=== PATIENT | male | born 1980 | race African-American/Black ===

== ENCOUNTER 2016-12-18 15:43 | Emergency (ER) | payer OTHER ==
[2016-12-18] MEDS ORDERED: ALBUTEROL SO4 2.5/IPRATROPIUM 0.5 INH SOL 3 ML VIAL.NEB. NEB ONE ×3 (15:53→16:51)
[2016-12-18 15:55] VITALS: BP 162/91; PULSE 102; TEMP 98.4; BMI 50.2
[2016-12-18] MEDS ORDERED: KETOROLAC TROMETHAMINE 60 MG/2 ML VIAL IM ONE (15:58)
[2016-12-18] MEDS ORDERED: KETOROLAC TROMETHAMINE 60 MG/2 ML VIAL ONE (16:29)
[2016-12-18] MEDS ORDERED: predniSONE 20 MG TABLET (UD) ONE (16:51)
[2016-12-18] MEDS ORDERED: predniSONE 20 MG TABLET (UD) PO ONE (16:51)
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
== END 2016-12-18 17:59 | disposition home or self-care (01) ==
LOC: JERFT 15:43
PROC: 3E0F7GC Introduction of Other Therapeutic Substance into Respiratory Tract, Via Natural or Artificial Opening (ICD-10-PCS; principal; 2016-12-18)
PROC: 3E0F7GC Introduction of Other Therapeutic Substance into Respiratory Tract, Via Natural or Artificial Opening (ICD-10-PCS; 2016-12-18)
PROC: 3E0233Z Introduction of Anti-inflammatory into Muscle, Percutaneous Approach (ICD-10-PCS; 2016-12-18)
DX: J45.901 Unspecified asthma with (acute) exacerbation (principal)
CPT/HCPCS: 71020-TC; 94640; 96372; 99281-25

== ENCOUNTER 2017-02-21 07:30 | Emergency (ER) | payer OTHER ==
[2017-02-21 07:37] VITALS: BP 147/80; PULSE 88; TEMP 98.2; BMI 48.7
[2017-02-21] MEDS ORDERED: FLUORESCEIN NA 1 EA STRIP ONE (08:27)
[2017-02-21] MEDS ORDERED: TETRACAINE 0.5% OPHTH SOLN 2 ML BOTTLE ONE (08:27)
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
--- NOTE | 2017-02-21 08:42 | PDOC ---
Attending Attestation - Resident Resident Name: James Yeung - ED Attending Attestation I have performed the following: I have examined & evaluated the patient, The case was reviewed & discussed with the resident, I agree w/resident's findings & plan - HPI HPI: 02/21/17 08:38 36 yo AA M with no significant medical history presented to the ED with pink eyes x 1 day. He woke up yesterday morning with sticky, white, crusty discharge and redness in b/l eyes, L being worse than R. Patient stated he gets irritation and pink eyes at times but the white sticky discharge is new and different from prior episodes. He does not wear contact lens or glasses. Denies cold symptom, fever, chills, eye pain, vision change. - Physicial Exam PE: 02/21/17 08:39 Physical exam PERRL, EOMI Bilateral conjunctivitis with some crusting is noted On fluoresceine exam, there is no corneal uptake, corneal abrasion, or corneal ulcers Visual acuity is 20/20 - Medical Decision Making 02/21/17 08:40 Most likely bilateral viral conjunctivitis, with possible secondary bacterial infection Will treat with Cipro ophthalmic drops
== END 2017-02-21 09:06 | disposition home or self-care (01) ==
LOC: JER 07:30
PROC: 4A07X0Z Measurement of Visual Acuity, External Approach (ICD-10-PCS; principal; 2017-02-21)
DX: B30.9 Viral conjunctivitis, unspecified (principal); B97.89 Other viral agents as the cause of diseases classified elsewhere
CPT/HCPCS: 99173; 99282-25

== ENCOUNTER 2017-08-05 07:23 | Emergency (ER) | payer OTHER ==
[2017-08-05 07:53] VITALS: BP 127/81; PULSE 90; TEMP 98.8; BMI 50.2
--- NOTE | 2017-08-05 08:12 | PDOC ---
Attending Attestation - Resident Resident Name: KaliaRadha - ED Attending Attestation I have performed the following: I have examined & evaluated the patient, The case was reviewed & discussed with the resident, I agree w/resident's findings & plan, Exceptions are as noted - HPI HPI: 08/05/17 08:10 36y M presenting wit butler possible bug bite he woke up on wednesday and noticed something on his nose he thought it was a pimple and picked at it. pt denies any drainage, fever/ chills, n/v, facial pain. - Physicial Exam PE: 08/05/17 08:43 GENERAL: The patient is awake, alert, and fully oriented, Nontoxic - in no acute distress. HEAD: Normocephalic, atraumatic. EYES: extraocular movements intact, sclera anicteric, conjunctiva clear. ENT: Normal voice, Moist mucous membranes. mild erythema and induration just lateral to the nasal bridge, no occular infolvement, SKIN: as noted above - Medical Decision Making 08/05/17 08:45 suspect possible cellultis no occular or other structural involvement, no systemic complaints will give bactrim will have pt fu with his PMD on wednesday or wednesday return precautions were discussed
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
== END 2017-08-05 09:29 | disposition home or self-care (01) ==
LOC: JER 07:23
DX: T14.8XXA Other injury of unspecified body region, initial encounter (principal); W57.XXXA Bitten or stung by nonvenomous insect and other nonvenomous arthropods, initial encounter; Y93.9 Activity, unspecified; Y92.9 Unspecified place or not applicable; Z88.0 Allergy status to penicillin
CPT/HCPCS: 99281-25